=== PATIENT | male | born 1975 | race American Indian/Alaskan Native ===

== ENCOUNTER 2020-08-09 09:28 | Emergency (ER) | payer SELFPAY ==
[2020-08-09 09:34] VITALS: BP 144/76
--- NOTE | 2020-08-09 11:02 | XRay Report ---
RIGHT ANKLE 3 VIEW(S) INDICATION / CLINICAL INFORMATION: Injury/pain COMPARISON: None available. FINDINGS: BONES / JOINT(S): Acute mildly displaced Gibbs type B fracture of distal fibula. Probable fracture in volving the posterior malleolus. Several age-indeterminate avulsion fractures along the inferior aspe ct of medial and lateral malleoli with bilateral ankle soft tissue swelling. No significant arthritis . SOFT TISSUES: No significant abnormality. ADDITIONAL FINDINGS: None. Signer Name: Seamus Gonzalez MD Signed: 08/09/2020 10:57 AM Workstation Name: [id number]
[2020-08-09] MEDS ORDERED: HYDROcodone/ACETAMINOPHEN 5-325 MG TAB PO ONE (11:12)
--- NOTE | 2020-08-09 11:27 | Emergency Department Report ---
ED Lower Extremity HPI - General Chief Complaint: Extremity Injury, Lower Stated Complaint: RT ANKLE PAIN Time Seen by Provider: 08/09/20 10:12 Source: patient Mode of arrival: Ambulatory Limitations: No Limitations - History of Present Illness Initial Comments: Patient is a 44-year-old male who presents emergency room with complaints of a right ankle injury that occurred on 07/31/2020. He states that he was moving some pallets when he twisted his ankle and then jumped down. He states since then he has had ankle pain and swelling. He states that he has been ambulating despite the pain. He states that it swells whenever he leaves his leg hanging down. He states that he had a ankle sprain as a child but otherwise denies any known injuries. He denies any numbness or weakness. No past medical history. No allergies to medications. - Related Data Previous Rx's Medication Instructions Recorded Last Taken Type HYDROcodone/APAP 5-325 [[place] 1 each PO Q6HR PRN #10 tablet 08/09/20 Unknown Rx 5/325] Ibuprofen [Motrin 600 MG tab] 600 mg PO Q8H PRN #14 tablet 08/09/20 Unknown Rx Allergies Allergy/AdvReac Type Severity Reaction Status Date / Time No Known Allergies Allergy Unverified 08/09/20 09:32 ED Review of Systems ROS: Stated complaint: RT ANKLE PAIN Other details as noted in HPI Comment: All other systems reviewed and negative ED Past Medical Hx - Past Medical History Previous Medical History?: No - Surgical History Past Surgical History?: No - Social History Smoking Status: Never Smoker Substance Use Type: Alcohol - Medications Home Medications: Home Medications Medication Instructions Recorded Confirmed Last Taken Type HYDROcodone/APAP 5-325 [[place] 1 each PO Q6HR PRN #10 tablet 08/09/20 Unknown Rx 5/325] Ibuprofen [Motrin 600 MG tab] 600 mg PO Q8H PRN #14 tablet 08/09/20 Unknown Rx ED Physical Exam - General Limitations: No Limitations General appearance: alert, in no apparent distress - Head Head exam: Present: atraumatic, normocephalic - Eye Eye exam: Present: normal appearance - ENT ENT exam: Present: mucous membranes moist - Extremities Exam Extremities exam: Present: other (ttp to the right lateral malleolus and anterior ankle, no foot ttp, there is moderate diffuse ankle edema, no obvious deformity, neurovascularly intact, strong pulses on doppler) - Neurological Exam Neurological exam: Present: alert, oriented X3 - Psychiatric Psychiatric exam: Present: normal affect, normal mood - Skin Skin exam: Present: warm, dry, intact ED Course Vital Signs 08/09/20 09:33 Temperature 98.2 F Pulse Rate 81 Respiratory 18 Rate Blood Pressure 144/76 O2 Sat by Pulse 99 Oximetry ED Lower Extremity MDM - Radiology Data Radiology results: report reviewed RIGHT ANKLE 3 VIEW(S) INDICATION / CLINICAL INFORMATION: Injury/pain COMPARISON: None available. FINDINGS: BONES / JOINT(S): Acute mildly displaced Gibbs type B fracture of distal fibula. Probable fracture involving the posterior malleolus. Several age-indeterminate avulsion fractures along the inferior aspect of medial and lateral malleoli with bilateral ankle soft tissue swelling. No significant arthritis. SOFT TISSUES: No significant abnormality. ADDITIONAL FINDINGS: None. Signer Name: Seamus Gonzalez MD Signed: 08/09/2020 10:57 AM Workstation Name: [id number] Transcribed By: TL Dictated By: Seamus Gonzalez MD Electronically Authenticated By: Seamus Gonzalez MD Signed Date/Time: 08/09/201056 DD/ 105 TD/TT: - Medical Decision Making Patient is a 44-year-old male who presents emergency room with complaints of a right ankle injury that occurred on 07/31/2020. He states that he was moving some pallets when he twisted his ankle and then jumped down. He states since then he has had ankle pain and swelling. He states that he has been ambulating despite the pain. He states that it swells whenever he leaves his leg hanging down. He states that he had a ankle sprain as a child but otherwise denies any known injuries. He denies any numbness or weakness. No past medical history. No allergies to medications. vss. on exam: ttp to the right lateral malleolus and anterior ankle, no foot ttp, there is moderate diffuse ankle edema, no obvious deformity, neurovascularly intact, strong pulses on doppler. XR right ankle: BONES / JOINT(S): Acute mildly displaced Gibbs type B fracture of distal fibula. Probable fracture involving the posterior malleolus. Several age-indeterminate avulsion fractures along the inferior aspect of medial and lateral malleoli with bilateral ankle soft tissue swelling. No significant arthritis. Discussed all results with patient and patient was given his x-ray report. Patient placed in short leg posterior splint by nurse and remained neurovascularly intact. pt given crutches and crutch instructions by nurse. Patient given [place] while in the ED as he states that he has a ride. Patient given prescription for [place] and ibuprofen. Advised patient to please take medication as prescribed. Do not drive, operate machinery, work while taking pain medication. You cannot drive until you have been cleared by an orthopedic doctor. You cannot bear weight on the leg until you have been cleared by an orthopedic doctor. It is very important that you follow-up with an orthopedic doctor. Return to emergency room for any new or worsening symptoms. Critical care attestation.: If time is entered above; I have spent that time in minutes in the direct care of this critically ill patient, excluding procedure time. ED Disposition Clinical Impression: Fibula fracture Qualifiers: Encounter type: initial encounter Fibula location: distal Fracture type: closed Fracture morphology: unspecified fracture morphology Laterality: right Qualified Code(s): S82.831A - Other fracture of upper and lower end of right fibula, initial encounter for closed fracture Fracture, posterior malleolus Qualifiers: Encounter type: initial encounter Fracture type: closed Laterality: right Qualified Code(s): S82.391A - Other fracture of lower end of right tibia, initial encounter for closed fracture Disposition: DC-01 TO HOME OR SELFCARE Is pt being admited?: No Does the pt Need Aspirin: No Condition: Stable Instructions: Ankle Fracture (ED) Additional Instructions: please take medication as prescribed. Do not drive, operate machinery, work while taking pain medication. You cannot drive until you have been cleared by an orthopedic doctor. You cannot bear weight on the leg until you have been cleared by an orthopedic doctor. It is very important that you follow-up with an orthopedic doctor. Return to emergency room for any new or worsening symptoms. Prescriptions: Ibuprofen [Motrin 600 MG tab] 600 mg PO Q8H PRN #14 tablet PRN Reason: Pain, Moderate (4-6) HYDROcodone/APAP 5-325 [[place] 5/325] 1 each PO Q6HR PRN #10 tablet PRN Reason: Pain , Severe (7-10) Referrals: SHANNA SHAY MD [Staff Physician] - 2-3 Days [facility] [Provider Group] - 2-3 Days Time of Disposition: 11:31 Print Language: PORTUGUESE
== END 2020-08-09 12:26 | disposition home or self-care (01) ==
LOC: ED 09:28
DX: S82.401A Unspecified fracture of shaft of right fibula, initial encounter for closed fracture (principal); S82.891A Other fracture of right lower leg, initial encounter for closed fracture; Z79.899 Other long term (current) drug therapy; X50.1XXA Overexertion from prolonged static or awkward postures, initial encounter; Y93.89 Activity, other specified; Y92.89 Other specified places as the place of occurrence of the external cause; Y99.8 Other external cause status
CPT/HCPCS: 99283